=== PATIENT | female | born 1965 | race Hispanic/Latino ===

== ENCOUNTER 2018-10-16 11:24 | Emergency (ER) | payer SELFPAY ==
[2018-10-16 12:01] VITALS: BP 154/83
[2018-10-16] MEDS ORDERED: MORPHINE IM ONE (13:53)
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
--- NOTE | 2018-10-16 15:03 | XRay Report ---
FINAL REPORT EXAM: XR HAND 3+V RT HISTORY: right hand pain TECHNIQUE: Three views of the right hand. PRIORS: None. FINDINGS: There is no evidence of acute fracture. There is no evidence of joint dislocation. There is no focal osseous lesions seen. IMPRESSION: There is no acute abnormality identified.
--- NOTE | 2018-10-16 15:04 | XRay Report ---
FINAL REPORT EXAM: XR WRIST 3+V RT HISTORY: right wrist pain TECHNIQUE: 4 views of the right wrist PRIORS: None. FINDINGS: There is no evidence of acute fracture. There is no evidence of joint dislocation. There is no significant focal osseous lesions seen. IMPRESSION: There is no acute abnormality identified.
== END 2018-10-16 15:40 | disposition home or self-care (01) ==
LOC: ED 11:24
DX: M79.641 Pain in right hand (principal); G89.29 Other chronic pain; W18.39XA Other fall on same level, initial encounter; Y93.02 Activity, running; Y99.8 Other external cause status; Y92.89 Other specified places as the place of occurrence of the external cause
CPT/HCPCS: 29125; 73110; 73130; 96372; 99283; J2270

== ENCOUNTER 2019-06-06 09:54 | Emergency (ER) | payer SELFPAY ==
[2019-06-06] MEDS ORDERED: BENADRYL IM ONE (12:12)
[2019-06-06] MEDS ORDERED: TORADOL IM ONE (12:12)
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
--- NOTE | 2019-06-06 14:07 | XRay Report ---
Left foot-3 views INDICATION: left foot injury with pain and swelling. COMPARISON: None. IMPRESSION: Mild soft tissue swelling about the forefoot with no acute osseous abnormality or malali gnment. No significant DJD. Signer Name: Elijah Paredes MD Signed: 06/06/2019 2:03 PM Workstation Name: [id number]
[2019-06-06 14:24] VITALS: BP 130/84
== END 2019-06-06 15:08 | disposition home or self-care (01) ==
LOC: ED 09:54
DX: S90.122A Contusion of left lesser toe(s) without damage to nail, initial encounter (principal); Z98.890 Other specified postprocedural states; Z79.899 Other long term (current) drug therapy; Z88.4 Allergy status to anesthetic agent; Z88.8 Allergy status to other drugs, medicaments and biological substances; X58.XXXA Exposure to other specified factors, initial encounter; Y93.89 Activity, other specified; Y92.89 Other specified places as the place of occurrence of the external cause; Y99.8 Other external cause status
CPT/HCPCS: 73630; 96372; 99283; J1200; J1885

== ENCOUNTER 2019-09-01 13:36 | Emergency (ER) | payer SELFPAY ==
[2019-09-01 13:40] VITALS: BP 160/96
== END 2019-09-01 13:51 | disposition left against medical advice (07) ==
LOC: ED 13:36
DX: M54.5 Low back pain (principal); M54.2 Cervicalgia; Z53.21 Procedure and treatment not carried out due to patient leaving prior to being seen by health care provider

== ENCOUNTER 2019-09-01 14:53 | Outpatient (CLI) | payer SELFPAY ==
--- NOTE | 2019-09-01 16:21 | XRay Report ---
CERVICAL SPINE, 3 VIEWS INDICATION: NECK PAIN. COMPARISON: None. IMPRESSION: Osteopenia is evident. There is straightening of the normal lordosis. Mild degenerativ e disc disease is identified at C4-5 and C5-6. The remaining levels are within normal limits. The pos terior elements are unremarkable. No acute osseous injury or soft tissue abnormality is appreciated. LUMBOSACRAL SPINE, 2 VIEWS INDICATION: Back pain. COMPARISON: None. IMPRESSION: Osteopenia is evident. Is normal height and alignment of the vertebral bodies. Minimal discogenic disc disease and facet arthropathy are identified at all levels. Minimal irregularity is suggested along the anterior superior endplate of L4. This probably represents degenerative change. A nondisplaced superior endplate fracture could be considered. Please correlate with the patient and c onsider CT if needed. Signer Name: Adiel Rivera Jr, MD Signed: 09/01/2019 4:17 PM Workstation Name: [id number]
== END 2019-09-01 14:54 | disposition home or self-care (01) ==
LOC: XRAY 14:53
PROVIDERS: ATTEND Orthopaedic Surgery
DX: M50.320 Other cervical disc degeneration, mid-cervical region, unspecified level (principal); M85.88 Other specified disorders of bone density and structure, other site; M47.812 Spondylosis without myelopathy or radiculopathy, cervical region; M51.26 Other intervertebral disc displacement, lumbar region
CPT/HCPCS: 72040; 72100

== ENCOUNTER 2022-05-06 14:41 | Emergency (ER) | payer SELFPAY ==
[2022-05-06 14:59] VITALS: BP 140/90
[2022-05-06] MEDS ORDERED: dexAMETHasone 4 MG/ML VIAL IV ONE (17:33)
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
[2022-05-06] MEDS ORDERED: MAGIC MOUTHWASH 30ML PO SCH (17:34)
[2022-05-06] MEDS ORDERED: dexAMETHasone 4 MG/ML VIAL IM ONE (18:29)
[2022-05-06] MEDS ORDERED: MAGIC MOUTHWASH 30ML PO ONE (18:50)
== END 2022-05-06 19:11 | disposition home or self-care (01) ==
LOC: ED 14:41
DX: J02.9 Acute pharyngitis, unspecified (principal); K12.1 Other forms of stomatitis; G89.29 Other chronic pain; M54.9 Dorsalgia, unspecified; Z98.890 Other specified postprocedural states
CPT/HCPCS: 96372; 99282; J1100